=== PATIENT | male | born 1985 ===

== ENCOUNTER 2024-03-13 09:01 | Outpatient (CLI) | payer OTHER, SELFPAY | END 2024-03-13 09:02 | disposition home or self-care (01) | PROVIDERS: PCP Family Medicine; Visit Provider Family Medicine | DX: D72.819 Decreased white blood cell count, unspecified (principal); Z13.6 Encounter for screening for cardiovascular disorders | CPT/HCPCS: 80053; 80061 ==

== ENCOUNTER 2025-03-01 16:42 | Outpatient (CLI) | payer OTHER, SELFPAY | END 2025-03-01 16:43 | disposition home or self-care (01) | LOC: LKVREF 16:44 | PROVIDERS: PCP Family Medicine; Visit Provider Family Medicine | DX: D72.819 Decreased white blood cell count, unspecified (principal); R53.83 Other fatigue | CPT/HCPCS: 84403; 84443 ==